=== PATIENT | female | born 1950 | race Caucasian/White ===

== ENCOUNTER → 2021-07-31 | Outpatient (CLI) | payer MEDICARE ==
[~2021-07-31] MED LIST: IOHEXOL 240 MG/ML 50ML VIAL. PO ONE; IOHEXOL 300 MG/ML 75 ML VIAL. IV ONE
--- NOTE | 2021-07-31 14:42 | RAD ---
PQRS Compliance Statement: One or more of the following individualized dose reduction techniques were utilized for this examinat ion: 1. Automated exposure control 2. Adjustment of the mA and/or kV according to patient size 3. Use of iterative reconstruction technique Exam performed: CT abdomen and pelvis with contrast HISTORY: Iron deficiency anemia. DATE OF SERVICE: 07/31/2021. COMPARISON: None available TECHNIQUE: Contiguous helical acquisitions are obtained through the abdomen and pelvis during intrave nous demonstration of IV contrast. Sagittal and coronal reformatted images are obtained and reviewed. FINDINGS: The lung bases are essentially clear. The visualized heart is normal. The liver, spleen, pancreas and gallbladder appear normal. Both adrenal glands and bilateral kidneys are normal in size with symmetric excretion of contrast via both kidneys. There is no hydronephrosis or nephrolithiasis. Aorta is normal in caliber with mild atheromatous calcification. No aneurysm or d issection seen. Small and large bowel loops are nondilated and unremarkable. Scattered stool in the c olon. The urinary bladder is decompressed. The uterus is surgically absent. No adnexal masses seen. T here are mild degenerative changes in the lumbar spine. IMPRESSION: No acute intra-abdominal or pelvic process detected. Mild scattered stool throughout the colon. Correlate clinically for constipation. Electronically signed by: Eva Humphrey MD (07/31/2021 2:40 PM) [facility]
== END ==
LOC: CT 11:48
PROVIDERS: ATTEND Family Medicine
DX: K56.41 Fecal impaction (principal); I70.0 Atherosclerosis of aorta; M47.816 Spondylosis without myelopathy or radiculopathy, lumbar region; D50.9 Iron deficiency anemia, unspecified; Z90.710 Acquired absence of both cervix and uterus
CPT/HCPCS: 74177; Q9966; Q9967